=== PATIENT | female | born 1960 | race Caucasian/White ===

== ENCOUNTER 2018-09-22 18:27 | Observation (INO) ==
[2018-09-22] MEDS ORDERED: Sodium Chloride 0.9% 1,000 ML PRIMARY IV ONE (18:40)
[2018-09-22 18:53] LABS: BASOPHILS # (AUTO) 0.04 10*3/UL; BASOPHILS % (AUTO) 0.6 % (0-1); EOSINOPHILS # (AUTO) 0.18 10*3/UL; EOSINOPHILS % (AUTO) 2.8 % (0-8); Hematocrit [HCT] 46.9 % (37.0-47.0); Hemoglobin [HGB] 15.8 g/dL (12.0-16.0); MEAN CORPUSCULAR HGB CONC 33.7 g/dL (33-37); MEAN CORPUSCULAR VOLUME 97.9 FL (81-99); MEAN PLATELET VOLUME 9.6 FL (7.4-12.2); MONOCYTES # (AUTO) 0.39 10*3/UL (0.3-0.8); NEUTROPHILS # (AUTO) 2.69 10*3/UL; NEUTROPHILS % (AUTO) 41.2 % (50-80); RED BLOOD COUNT 4.79 10^6/uL (4.20-5.40)
[2018-09-22 18:55] LABS: PLATELET MORPHOLOGY COMMENT NORMAL MORPHOLOGY (NORM); RBC MORPHOLOGY COMMENT NORMAL MORPHOLOGY (NORM); WBC MORPHOLOGY COMMENT NORMAL MORPHOLOGY (NORM)
[2018-09-22 18:59] LABS: BLOOD UREA NITROGEN 10 mg/dL (7-22); BUN/CREATININE RATIO 16.66 (6-20); SERUM ALBUMIN 4.7 g/dL (3.5-4.8)
--- NOTE | 2018-09-22 19:07 | DI ---
AP CHEST X-RAY, 09/22/2018 6:41 PM : Clinical History: Syncope. Left-sided chest pain. Previous Exam: None at this facility. Soft Tissues: No acute soft tissue abnormality. Bones: Normal. Heart: Heart Size: Normal. Vascular Pedicle Width: Normal. Azygous Vein: Normal size. Vascular Flow P attern:Normal. Pulmonary Arteries: Normal. Lungs: No infiltrates. Effusion(s): None. Mediastinum: Normal. Nodules: No pulmonary nodules. Reading: Negative chest x-ray.
[2018-09-22] MEDS ORDERED: ASPIRIN 81 MG (BABY) CHEWABLE TABLET PO ONE (19:38)
--- NOTE | 2018-09-22 20:06 | PDOC ---
Syncope/Near-Syncope HPI - General Chief Complaint: Syncope / Near-Syncope Stated Complaint: SYNCOPAL EPISODE Date Seen by Provider: 09/22/18 Time Seen by Provider: 18:30 Source: POSITIVE: Patient Exam Limitations: POSITIVE: No limitations Nurse's Notes Reviewed & Considered: Yes - History of Present Illness Initial Comments: The patient is a 57-year-old female who presents to the emergency department by ambulance after 2 syncopal episodes. The patient states that she had gone to a earlier this afternoon and had several drinks with her friends afterward. She subsequently came home and took a nap. When she woke up this evening to get ready for work she apparently woke up on her bathroom floor after having apparently passed out. She subsequently went outside to take the trash out and again woke up on the ground presumedly passing out again. She subsequently called EMS. When they arrived she was awake and alert. She is complaining of some spasm in the left shoulder and chest wall. Twelve-lead EKG done on scene showed a normal sinus rhythm with no acute ST segment or T-wave changes. She was given fentanyl and Zofran in route for pain and is feeling better by the time she arrives here in the emergency department. She does continue to have some left-sided "charley horse" on the left side of her chest and shoulder. This pain is not worse with taking a deep breath. The pain is somewhat worse with moving her left arm. She denies any significant medical history otherwise. She does smoke approximately 1 pack of cigarettes per day and drinks fairly regularly. 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 She also reports that her mom had a history of coronary artery disease having had bypass surgery at the age of 58. She had presented with syncopal symptoms prior to her bypass surgery. The patient denies any recent pain or swelling in her extremities. She has had some increased abdominal bloating. - Patient Home Medications Home Medications: Home Medications NK 09/22/18 - Patient Allergies Allergies/Adverse Reactions: Allergies Allergy/AdvReac Type Severity Reaction Status Date / Time Penicillins Allergy Anaphylaxis Verified 09/22/18 18:39 Past Medical History - heen HEENT History: Denies History Cardiovascular History: Denies History Respiratory History: Denies History Gastrointestinal History: Denies History Genitourinary History: Denies History Endocrine History: Denies History Musculoskeletal History: Denies History Neurological History: Denies History Blood Disorders: Denies History Psychiatric History: Denies History History of Sexually Transmitted Diseases: No Female Reproductive History: Denies History Obstetrical History: Denies History Cancer History: Denies History In Past Year Been Physically Harmed or Verbally Threatened: No History of MDRO: No History of Other Communicable Diseases: No Tobacco Use: Current Every Day Smoker In the Past 12 Months, Have Used or Abuse Any Substance: None Previous Surgical History: Yes Type / Date of Surgery: TUBAL Anesthesia Reactions: No Malignant Hyperthermia: No Family History of Malignant Hyperthermia: No Significant Family History: No pertinent family hx Past Medical History Reviewed: Reviewed - No Changes ROS - Limitations ROS Limitations: No Limitations Constitution: DENIES: Fever Cardiovascular: DENIES: Chest Pain (Left-sided chest wall pain) Respiratory: DENIES: Cough Non Productive, Cough Productive, Hurts To Breathe, Shortness Of Breath Neurological: DENIES: Headache, Numbness, Weakness Gastrointestinal: REPORTS: Nausea, Other (Recent abdominal bloating). DENIES: Abdominal Pain, Vomitting, Diarrhea Musculoskeletal: REPORTS: Denies MS Symptoms. DENIES: Calf Pain, Lower Extremity Swelling Genitourinary: REPORTS: Denies Symptoms Eyes: REPORTS: Denies Symptoms ENT: REPORTS: Denies Symptoms Skin: DENIES: Rash Syncope / Near-Syncope Exam - General Appearance General Appearance: POSITIVE: Alert, Cooperative, No Acute Distress - HEENT HEENT: POSITIVE: Head Inspection Nml, Eyes Inspection Nml, Ears Inspection Nml, Nose Inspection Nml, Pharynx Inspect. Nml, PERRL, EOMI - Neck / Back Neck/Back: POSITIVE: Supple. NEGATIVE: Non-Tender - Respiratory Respiratory: POSITIVE: No Respiratoy Distress, Breath Sounds Normal - Cardiovascular Cardiovascular: POSITIVE: Regular Rate and Rhythm, Heart Sounds Normal Peripheral Pulses: Dorsalis-pedis (R): 2+, Dorsalis-pedis (L): 2+ - Abdomen Abdomen: Soft: (All Quadrants), Denies Tenderness: (All Quadrants), No Guarding: (All Quadrants), No Rebound: (All Quadrants), No Distention: (All Quadrants) - Skin Skin: POSITIVE: Intact, No Rash - Extremities Extremity: Normal ROM: (All Extremities), Normal Inspection: (All Extremities) - Neuro / Psych Higher Functions: POSITIVE: Oriented to Person, Oriented to Place, Oriented to Time Cranial Nerves: POSITIVE: Normal As Tested Sensorimotor: POSITIVE: No Motor Deficits, No Sensory Deficits Syncope/Near-Syncope Progress - Results Reviewed by me Xrays/CTs/US Reviewed by me: Yes Discussed with Radiologist: Yes Radiology Findings: Chest x-ray shows no acute findings per radiologist. Lab Results Reviewed by Me: Yes Lab Results:: Laboratory Results 09/22/18 09/22/18 09/22/18 18:40 18:40 18:40 WBC 6.51 RBC 4.79 Hgb 15.8 Hct 46.9 MCV 97.9 MCH 33.0 H MCHC 33.7 RDW Std Deviation 50.1 H RDW Coeff of Joseph 14.2 Plt Count 337 MPV 9.6 Immature Gran % (Auto) 0.2 Neut % (Auto) 41.2 L Lymph % (Auto) 49.2 [place] % (Auto) 6.0 Eos % (Auto) 2.8 Baso % (Auto) 0.6 Immature Gran # (Auto) 0.01 Neut # (Auto) 2.69 Lymph # (Auto) 3.20 [place] # (Auto) 0.39 Eos # (Auto) 0.18 Baso # (Auto) 0.04 WBC Morphology Comment Normal morphology Plt Morphology Comment Normal morphology RBC Morph Comment Normal morphology PT 10.9 INR 0.965 D-Dimer 136 Sodium 145 Potassium 4.1 Chloride 111 Carbon Dioxide 21 L Anion Gap 13 BUN 10 Creatinine 0.6 Estimated GFR > 60 BUN/Creatinine Ratio 16.66 Glucose 105 Calculated Osmolality 298.0 H Calcium 9.1 Magnesium 2.1 Total Bilirubin 0.3 AST 42 H ALT 35 Alkaline Phosphatase 110 Troponin I Total Protein 8.0 Albumin 4.7 Globulin 3.3 Albumin/Globulin Ratio 1.40 Amylase Lipase TSH Serum Alcohol 177 H 09/22/18 09/22/18 09/22/18 18:40 18:41 18:41 WBC RBC Hgb Hct MCV MCH MCHC RDW Std Deviation RDW Coeff of Joseph Plt Count MPV Immature Gran % (Auto) Neut % (Auto) Lymph % (Auto) [place] % (Auto) Eos % (Auto) Baso % (Auto) Immature Gran # (Auto) Neut # (Auto) Lymph # (Auto) [place] # (Auto) Eos # (Auto) Baso # (Auto) WBC Morphology Comment Plt Morphology Comment RBC Morph Comment PT INR D-Dimer Sodium Potassium Chloride Carbon Dioxide Anion Gap BUN Creatinine Estimated GFR BUN/Creatinine Ratio Glucose Calculated Osmolality Calcium Magnesium Total Bilirubin AST ALT Alkaline Phosphatase Troponin I < 0.012 Total Protein Albumin Globulin Albumin/Globulin Ratio Amylase 45 Lipase 40 TSH 0.565 Serum Alcohol CBC and BMP: 09/22/18 18:40 09/22/18 18:40 EKG Interpreted/Reviewed By Me:: Yes EKG Interpretation:: POSITIVE: Normal Sinus Rhythm, Normal Rate, Normal QRS, Normal ST/T - Patient's Progress MDM / ED Course: The patient's vital signs are all unremarkable on arrival. An IV had been established per EMS and the patient did receive a 1 L bolus of normal saline. EKG from the field was reviewed and a repeat EKG done here in the emergency department shows normal sinus rhythm with no acute ST segment or T-wave changes. Her blood work is all essentially unremarkable with a normal d-dimer, normal troponin. Her amylase and lipase are normal. Blood alcohol is elevated at 177. - Consult Counseled: POSITIVE: Patient, Family, RE: Lab Results, RE: Radiology Results, RE: DX, RE: Need for F/U Patient Care Time - Estimated PCT Patient Care Time (In Minutes): 30 Vital Signs - Recent Vital Signs Vital Signs: Vital Signs (Last 8 hours) Temp Pulse Resp BP Pulse Ox 09/22/18 18:29 97.0 F 88 18 130/88 95 - VS Reviewed Vital Signs Reviewed: Yes Discharge Clinical Impression: Syncope, Chest pain Discharge Disposition: Admit to Inpatient Condition: Stable Patient Problem(s) Reviewed: Yes Follow Up With: KAREN MANN [Primary Care Provider] - Date Decision to Admit to Inpatient: 09/22/18 Time Decision to Admit to Inpatient: 18:35
[2018-09-22] MEDS ORDERED: LORazepam Inj(ETOH withdrawal) 2 MG/ML VIAL IVP PRN (20:12)
[2018-09-22] MEDS ORDERED: LIDOCAINE W/ SODIUM BICARB 0.5 ML SYR SUBD PRN (20:14)
[2018-09-22] MEDS ORDERED: NITROGLYCERIN 0.4 MG SL TAB (BOTTLE OF 3) SL PRN (20:14)
--- NOTE | 2018-09-22 20:39 | PDOC ---
HPI - History of Present Illness History of Present Illness: This very nice 57-year-old female who attended a today had that she states 3 rum and Cokes went home and took a shower and had a syncopal episode in the bathroom got up and went to work passed out again in her yard after that she called 911 and she was brought to the hospital. She does have some chest pain on the left side at present. 2 out of 10 EKG showed sinus rhythm on seeing. She complains again of a left-sided Steve horse kind of feeling. 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 family history in her mother coronary artery disease which had bypass at age 58 her alcohol level is 178 her last drink was at 2 PM Past Medical History Medical History: No medication Tobacco Use: Current Every Day Smoker Do you dip or chew tobacco: No In the Past 12 Months, Have Used or Abuse Any of the Following Substance: None Medication / Allergies Home Medications: Home Medications Medication Instructions Recorded Confirmed NK 09/22/18 09/22/18 Allergies/Adverse Reactions: Allergies Allergy/AdvReac Type Severity Reaction Status Date / Time Penicillins Allergy Anaphylaxis Verified 09/22/18 18:39 Review of Systems - Review of Systems All Systems: Reviewed & No Additional Complaints Except as Stated - Respiratory Respiratory: DENIES: Negative System Review, Cough, Sputum, Dyspnea At Rest, Dyspnea with Exertion, Pleuritic Pain, Hemoptysis, Wheezing, Other, See HPI - Cardiovascular Cardiovascular: DENIES: Negative System Review, Chest Pain, Edema, Syncope, Palpitations, Orthopnea, Paroxysmal Nocturnal Dyspnea, Other, See HPI - Gastrointestinal Gastrointestinal / Abdominal: DENIES: Negative System Review, Nausea, Vomiting, Diarrhea, Constipation, Abdominal Pain, Bloody Stool, Poor Appetite, Heartburn, Regurgitation, Bloating, Lactose Intolerance, Melena, Bright Red Blood per Rectum, Other, See HPI Exam - Vitals Vital Signs: Vital Signs Temperature 97.0 F Temperature Source Temporal Artery Scan Pulse Rate [Pulse Oximeter] 88 Respiratory Rate 18 Blood Pressure [Left Arm] 130/88 Pulse Ox 95 Oxygen Delivery Method Room Air Height 5 ft 6 in Weight 160 lb - General General Appearance: Cooperative, Mild Distress - Eye Eye Exam: POSITIVE: Normal Appearance, PERRL, EOMI, No Scleral Icterus - ENT ENT Exam: POSITIVE: Normal Exam, Normal External Ear Exam, Normal Oropharynx, TM's Normal Bilaterally, Mucous Membranes Moist - Neck Neck Exam: Normal Inspection, Full ROM, No Tenderness, No Lymphadenopathy, No Thyromegaly, JVP is not Raised - Respiratory Respiratory Exam: POSITIVE: Clear to Auscultation - Bilaterally, Breathing Non Labored, Normal To Percussion, Normal to Percussion and Palpation - Cardiovascular Cardiovascular Exam: POSITIVE: RRR, No Murmur, No Clicks, No Gallops, No Rubs, PMI Non-Displaced - GI/Abdominal GI/Abdominal Exam: POSITIVE: Normal Bowel Sounds, Non Tender, Non Distended, Soft, No Masses, No Hepatomegaly, No Splenomegaly, No Organomegaly - Extremities Extremities Exam: POSITIVE: No Clubbing Present, No Edema Present, No Cyanosis Present Results - Labs CBC and BMP: 09/22/18 18:40 09/22/18 18:40 Assessment and Plan - Patient Problems (1) Alcohol intoxication Current Visit: Yes Status: Acute Comment: Most likely the patient wasn't abbreviated with alcohol and passed out twice I don't think the this is secondary to arrhythmias. Nevertheless because of her history and chest pain I will order a Lexiscan stress test I will also order a carotid ultrasound in a.m. electrolytes are stable monitor on telemetry Code(s): F10.929 - Alcohol use, unspecified with intoxication, unspecified (2) Syncope Current Visit: Yes Status: Acute Code(s): R55 - Syncope and collapse (3) Chest pain Current Visit: Yes Status: Acute Code(s): R07.9 - Chest pain, unspecified
[2018-09-22] MEDS: Sodium Chloride 0.9% 1,000 ML PRIMARY IV SCH (21:22)
[2018-09-22 21:25] LABS: AMPHETAMINE SCREEN NEGATIVE (NEG); CANNABINOID SCREEN,URINE NEGATIVE (NEG); COCAINE SCREEN NEGATIVE (NEG); METHADONE URINE SCREEN NEGATIVE (NEG); METHAMPHETAMINES SCREEN,URINE NEGATIVE (NEG); OPIATE SCREEN,URINE NEGATIVE (NEG); URINE SAMPLE TYPE CLEAN CATCH URINE; URINE SPECIFIC GRAVITY - MAN 1.006
[2018-09-22] MEDS ORDERED: MORPHINE SULFATE 2 MG/1 ML IVP PRN (22:02)
[2018-09-23] MEDS: CALCIUM CARBONATE 500 MG (TUMS) CHEWABLE TABLET PO PRN ×3 (00:03→19:47)
[2018-09-23] MEDS: Sodium Chloride 0.9% 1,000 ML PRIMARY IV SCH ×2 (04:13→14:41)
[2018-09-23] MEDS: ACETAMINOPHEN 325 MG TABLET PO PRN ×3 (04:13→19:47)
[2018-09-23 05:24] LABS: BLOOD UREA NITROGEN 10 mg/dL (7-22); BUN/CREATININE RATIO 16.66 (6-20); CHOL/HDL RATIO 3.24 RATIO (0-4.0); SERUM ALBUMIN 3.9 g/dL (3.5-4.8)
--- NOTE | 2018-09-23 10:45 | EKG ---
[address] [address] Measurements Intervals [place] Rate: 88 P: 70 HI: 126 QRS: 33 QRSD: 88 T: 51 QT: 356 QTc: 402 Interpretive Statements SINUS RHYTHM No previous ECG available for comparison Electronically Signed On 09-23-18 14:52:19 MDT by Alvino Weiss MD [email or web address]
--- NOTE | 2018-09-23 10:50 | PDOC(PROG) ---
Date of Service: 09/23/18 Time of Service: 10:50 Interval History: Subjective Patient came into the hospital after she passed out twice. She said she was a yesterday after that she did have some drinks but she did said it was 3 drinks. Then at home she passed out twice and the second time she called the medics and they brought her here. She did say that she's been having some spasm at different times in the chest on the left side last few minutes unrelated to exertion maybe being going on for 2 weeks. yesterday the pain lasted 2 hours. Today doesn't have pain. Objective : Data - Labs CBC and BMP: 09/22/18 18:40 09/23/18 04:15 Objective : Exam - General General Appearance: No Acute Distress, Cooperative - Head Head Exam: Normal Inspection - Eye Eye Exam: Normal Appearance - ENT ENT Exam: Normal Exam - Neck Neck Exam: Normal Inspection - Respiratory Respiratory Exam: Clear to Auscultation - Bilaterally - Cardiovascular Cardiovascular Exam: RRR - GI/Abdominal GI/Abdominal Exam: Normal Bowel Sounds, Non Tender, Non Distended, Soft, No Organomegaly - Rectal Rectal Exam: Deferred - External Exam: Deferred - Extremities Extremities Exam: Normal Inspection - Back Back Exam: Normal Inspection - Neurological Neurological Exam: Alert, Oriented x 3, CN II-XII Intact, No Facial Droop, Speech Intact / Clear, Moves All Extremities Equally - Psychiatric Psychiatric Exam: Normal Affect - Integumentary Integumentary Exam: Normal Color Assessment and Plan - Patient Problems (1) Syncope Current Visit: Yes Status: Acute Comment: Unclear reason, she is scheduled for stress test tomorrow. May be related to the alcohol plus some dehydration. But to complete the workup will do the stress test as she complained from pain in her chest. She she also need to have an echocardiogram as an outpatient. Code(s): R55 - Syncope and collapse (2) Chest pain Current Visit: Yes Status: Acute Comment: EKG is negative, cardiac enzymes so far negative she is scheduled for stress test tomorrow. Code(s): R07.9 - Chest pain, unspecified (3) Alcohol intoxication Current Visit: Yes Status: Acute Comment: Seem to be resolved. We'll cut back on the fluid may be stop it later on tonight. Code(s): F10.929 - Alcohol use, unspecified with intoxication, unspecified
[2018-09-24 05:02] VITALS: RESP 18
[2018-09-24 08:52] VITALS: BP 156/68; TEMP 98
--- NOTE | 2018-09-24 08:52 | STRESSTEST ---
[facility] Interpretive Statements Patient had lexiscan stress test per protocol, her baseline BP was 130/92, baseline heart rate 57, EKG showed sinus bradycardia, post injection patient did have some headache that resolved in the recovery phase, her maximum BP was 156/96, maximum heart rate was 104, no new EKG changes noted., Conclusion : No new EKG changes noted on the EKG part of lexiscan stress test. await images. [email or web address]
[2018-09-24 11:15] VITALS: O2SAT 97
--- NOTE | 2018-09-24 13:34 | DI ---
2 DAY LEXISCAN STRESS & REST MYOCARDIAL PERFUSION SCANS, 09/23/2018 7:00 AM : Clinical History: Syncope Previous Exam: None available. The patient was stressed by Dr. Simon Love The standard Lexiscan protocol was used. Please see the Doctor's report. At the designated time, 37.1 mCi of 99Tc-sestimibi was injected IV. Stress gated tomograms were acquired within one hour of the i njection. For the resting scans, 35.9 mCi was injected IV and resting gated tomograms were acquired in similar fashion. Stress scans were performed on 09/23/18; the resting scans were performed on 09/24/18. Quantitative and qualitative analyses were performed. Quantitative analysis was performed with the IN [facility] [id number] protocols. Very low dose limited CT scans of the chest are o btained through the level of the heart for attenuation correction of the gated stress and rest cardia c SPECT data. Non-attenuated and attenuated scans were processed for review, and the attenuated scans were used for final interpretation of this study. Review of the raw data images and quality assurance manager files indicate that these series of examinations ar e of excellent quality. Stress and rest left ventricular chamber sizes are normal. Stress and rest LV EF are 71 % and 73 %, respectively. There is no evidence of ischemia and no defects on stress or rest. There is normal wall motion and normal ejection fraction. Transient ischemic dilatation ratio is 1.10, with a normal range up to 1.22 for patients str essed with the Shay protocol and up to 1.33 for patients stressed with the Lexiscan protocol. The very low dose CT scans through the level of the heart show no coronary artery calcifications. The re is no adenopathy or evidence of lung nodules. There is diffuse fatty infiltration of the liver. Mild degenerative changes of the spine are seen. The thyroid is unremarkable. Reading: Normal nuclear medicine stress test.
--- NOTE | 2018-09-24 14:22 | DCSUMMARY ---
Hospitalization Summary Admit Date: 09/22/2018 Discharge Date: 09/24/18 Hospital Course: Discharge diagnosis 1. Syncope, unclear etiology, question related to alcohol intoxication 2. Episode of chest pain enzymes negative, stress test was negative. 3. Hypertension needs follow-up Hospital course This is a 57 years old female with no significant past medical history who attended a on the day of admission after that she had 3 drinks and went home then took a shower had a syncopal episode in the bathroom got up and was planning to go to work. However she had another episode of syncope and she called the medics and brought her to the hospital. She did report some pain in the chest. The pain that she reported was atypical. EKG was negative. She was admitted to the hospital by Dr. Montez please see his note. Cardiac enzymes were repeated and they were negative. We did a stress test which was negative. On the day of discharge she was doing better and since the stress test was negative we thought that she can be discharged home. I did order for her an echocardiogram to complete the workup of syncope to be done as an outpatient. Did tell her to F/U with her primary for the results. I think though the syncope may be related to the alcohol intake that she had. I did tell her that her blood pressure while she was here noted to be on the high side. I suggested that she follow-up with her primary to recheck her blood pressure as she may need to be on medication if it persists to be on the high side. Discharge instruction Diet regular Activity as tolerated Medication none Follow-up with PCP in one-two weeks Condition at discharge was stable for discharge Exam - Vitals Vital Signs: Vital Signs Temperature 98 F Temperature Source Temporal Artery Scan Pulse Rate [Apical] 80 Pulse Rate [Pulse Oximeter] 65 Pulse Rate [left finger] 72 Pulse Rate 61 Respiratory Rate 18 Blood Pressure [Right Arm] 167/82 Blood Pressure [Left Arm] 156/68 Blood Pressure 138/94 Pulse Ox [left finger] 97 Pulse Ox 94 Oxygen Flow Rate [left finger] 1 Oxygen Flow Rate 1 Oxygen Delivery Method [left Room Air finger] Oxygen Delivery Method Room Air Height 5 ft 6 in Weight 179 lb 6 oz - General General Appearance: No Acute Distress, Cooperative - Head Head Exam: Normal Inspection - Eye Eye Exam: POSITIVE: Normal Appearance - ENT ENT Exam: POSITIVE: Normal Exam - Neck Neck Exam: Normal Inspection - Respiratory Respiratory Exam: POSITIVE: Clear to Auscultation - Bilaterally - Cardiovascular Cardiovascular Exam: POSITIVE: RRR - GI/Abdominal GI/Abdominal Exam: POSITIVE: Normal Bowel Sounds, Non Tender, Non Distended, Soft, No Organomegaly - Rectal Rectal Exam: POSITIVE: Deferred - External Exam: POSITIVE: Deferred - Extremities Extremities Exam: POSITIVE: Normal Inspection - Back Back Exam: POSITIVE: Normal Inspection - Neurological Neurological Exam: POSITIVE: Alert, Oriented x 3, CN II-XII Intact, No Facial Droop, Speech Intact / Clear, Moves All Extremities Equally - Psychiatric Psychiatric Exam: POSITIVE: Normal Affect - Integumentary Integumentary Exam: POSITIVE: Normal Color Patient Problems - Patient Problem List (1) Syncope Status: Acute Code(s): R55 - Syncope and collapse Category: Medical (2) Chest pain Status: Acute Code(s): R07.9 - Chest pain, unspecified Category: Medical (3) Alcohol intoxication Status: Acute Code(s): F10.929 - Alcohol use, unspecified with intoxication, unspecified Category: Medical
== END 2018-09-24 16:00 | disposition home or self-care (01) ==
LOC: MED/SURG 18:27 → ER 18:27 → MED/SURG 20:34
PROVIDERS: ADMIT Internal Medicine; ATTEND Internal Medicine